=== PATIENT | male | born 1960 | race Hispanic/Latino ===

== ENCOUNTER 2025-04-23 01:21 | Emergency (ER) | payer MEDICARE, MEDICAID ==
[2025-04-23] MEDS ORDERED: Gabapentin 300 MG CAP ONE (01:55)
[2025-04-23] MEDS ORDERED: Gabapentin 400 MG CAP PO SCH (02:30)
== END 2025-04-23 02:12 | disposition home or self-care (01) ==
LOC: CSHERS 01:21
DX: F41.1 Generalized anxiety disorder (principal); I10 Essential (primary) hypertension; F17.210 Nicotine dependence, cigarettes, uncomplicated
CPT/HCPCS: 99283